=== PATIENT | female | born 1995 | race Caucasian/White ===

== ENCOUNTER → 2021-11-16 15:21 | Outpatient (BNVA) | payer OTHER, SELFPAY | PROVIDERS: PCP Family Medicine; Visit Provider Family Medicine | DX: Z76.89 Persons encountering health services in other specified circumstances (principal); E03.9 Hypothyroidism, unspecified; E28.2 Polycystic ovarian syndrome | CPT/HCPCS: 80053; 81000; 81025; 84439; 84443; 85025 ==

== ENCOUNTER 2022-04-02 10:35 | Emergency (ER) | payer OTHER, SELFPAY ==
[2022-04-02 10:48] VITALS: BP 181/115; PULSE 80; RESP 18; TEMP 36.8; O2SAT 99; BMI 56.3
--- NOTE | 2022-04-02 11:35 | ED_ITS ---
Documented by User: WILSON Saini 04/03/22 17:17 HPI - Skin/Abscess/Foreign Bdy General: Chief complaint: Skin/Abscess/Foreign Body Stated complaint: swelling and back pain Time Seen by Provider: 04/02/22 11:25 History of Present Illness: Patient is a 27-year-old female that comes to the ED with possible abscess on back. Patient was seen by Dr. Cullen at urgent care and Dr. Cullen sent her here to the ED for further evaluation and CT imaging of abscess. She reports the symptoms started approximately 10 days ago. She has a sore lump on the right lumbar region. It has not gotten any bigger in size over the last 10 days. She states it is gotten more painful. At rest pain is about a 3 out of 10. With any movement of torso especially if she is bending over pain gets significantly worse. She stated that she was unable to bend over to tie her shoes today due to the pain. Denies any fever, abdominal pain, nausea/vomiting, bladder or bowel symptoms. Patient also has a rash on the left lower leg that is red and warm and pruritic. Rash started after she shaved her legs couple days ago. Denies any purulent drainage from rash. Associated symptoms: Deny chills, fever(s), nausea or vomiting Review of Systems Const: Denies: fever(s), chills or fatigue Eyes: Denies: change in vision or eye discomfort ENMT: Denies: throat pain, odynophagia, nasal discharge or nasal congestion Card: Denies: chest pain, palpitations, edema, swelling of feet/ankles, dyspnea on exertion or orthopnea Resp: Denies: dyspnea, productive cough or non-productive cough GI: Denies: abdominal pain, nausea, vomiting, diarrhea, constipation or hematochezia : Denies: flank pain, dysuria or hematuria Musc: Reports: back pain (Tender mass on right lumbar region); Denies: neck pain or extremity swelling Skin/Breast: Denies: rash or new lesions Neuro: Denies: headache(s), numbness in extremities or weakness in extremities [facility] ED PFSH: Social History Smoking and tobacco status: never smoked Alcohol intake: current Alcohol intake frequency: holidays/special occasions only Physical Exam Const: COMMON NORMALS: no acute distress and patient oriented x3 GENERAL APPEARANCE: cooperative HENMT: COMMON NORMALS: normocephalic HEAD & SCALP: normocephalic MOUTH: Normal oral and palatal mucosa present THROAT: posterior oropharynx normal and uvula midline Neck/C-Spine: COMMON NORMALS: supple GENERAL: Yes normal visual inspection Resp: COMMON NORMALS: normal respiratory effort, No retractions, No use of accessory muscles and clear to auscultation bilaterally AUSCULTATION: clear to auscultation bilaterally Cardio: COMMON NORMALS: regular rate, regular rhythm, S1 normal heart sound present, S2 normal heart sound present, No gallops present (Cardio), No clicks present (Cardio), No murmurs present (Cardio) and Peripheral pulses 2+ throughout RATE: regular rate RHYTHM: regular rhythm HEART SOUNDS: S1 normal heart sound present and S2 normal heart sound present PERIPHERAL PULSES: Peripheral pulses 2+ throughout GI: COMMON NORMALS: Normal to inspection, nondistended, normoactive bowel sounds present, Soft to palpation, non-tender and no masses PALPATION: Yes Soft to palpation : COMMON NORMALS: Yes no CVA tenderness BLADDER/KIDNEY EXAM: Yes no CVA tenderness Back/Pelvis: COMMON NORMALS: no CVA tenderness OTHER: Tender palpable mass on right lumbar of back just to the right of lumbar spine and mid scapular region. No erythema, warmth or skin lesion noted. No purulent drainage seen. Extremity: COMMON NORMALS: normal to inspection Neuro: COMMON NORMALS: patient oriented x3 GAIT: Yes Normal gait present Skin: NARRATIVE SKIN EXAM: Left lower leg?erythemic and warm rash noted. No purulent drainage. Rash is nontender to palpation. Patient describes it as pruritic rash. GENERAL SKIN EXAM: dry skin Course 2 Vital Signs: Vital signs: Vital Signs Temperature 7 F L 04/02/22 14:30 Pulse Rate 70 04/02/22 14:30 Respiratory Rate 18 04/02/22 14:30 Blood Pressure 139/97 04/02/22 14:30 Pulse Oximetry 100 04/02/22 14:30 Oxygen Delivery Me thod 04/02/22 14:30 MDM - Skin/Abscess/Foreign Bdy Medicial Decision Making Patient is a 27-year-old female that comes to the ED with possible abscess on back. Patient was seen by Dr. Cullen at urgent care and Dr. Cullen sent her here to the ED for further evaluation and CT imaging of abscess. Vitals are stable. Upon exam patient appears to have some cellulitis left lower leg and she does have a tender palpable soft tissue possibly muscular mass noted in right lumbar region. It does not appear to be an abscess is not red or warm or draining. Rest of exam is benign. Labs are unremarkable. CT abdomen pelvis shows no soft tissue mass no other acute findings. Patient was diagnosed with musculoskeletal back pain and cellulitis. She was discharged home with a prescription for muscle relaxant, Keflex and prednisone. Told to follow-up with PCP in the next week for reevaluation. Return to ED precautions given. Patient understood and agreed with plan. Lab Data I reviewed the patient's lab results. : 04/02/22 11:13 04/02/22 11:13 Radiology Impressions Abdomen/Pelvis CT 04/02/22 11:58 IMPRESSION: 1. No soft tissue mass along the RIGHT lumbar spine or pelvis. 2. No evidence for appendicitis. 3. Moderately enlarged liver with hepatic steatosis. Laboratory Results WBC 5.1 10^3/uL (4.0-10.0) 04/02/22 11:13 RBC 4.47 10^6/uL (4.1-5.3) 04/02/22 11:13 Hgb 12.9 g/dL (11.5-15.3) 04/02/22 11:13 Hct 41.0 % (37.0-47.0) 04/02/22 11:13 MCV 91.7 fl (81-99) 04/02/22 11:13 MCH 28.9 pg (28.0-34.0) 04/02/22 11:13 MCHC 31.5 g/dL (30.0-36.0) 04/02/22 11:13 RDW 12.6 % (12.1-15.1) 04/02/22 11:13 Plt Count 246 10^3/cmm (130-400) 04/02/22 11:13 MPV 10.4 fL (7.4-10.4) 04/02/22 11:13 Neut % (Auto) 49.7 % 04/02/22 11:13 Lymph % (Auto) 38.6 % 04/02/22 11:13 Pine % (Auto) 8.3 % 04/02/22 11:13 Eos % (Auto) 2.4 % 04/02/22 11:13 Baso % (Auto) 0.6 % 04/02/22 11:13 Neut # (Auto) 2.53 10^3/uL (1.8-7.7) 04/02/22 11:13 Lymph # (Auto) 2.0 10^3/uL (0.8-4.8) 04/02/22 11:13 Pine # (Auto) 0.4 10^3/uL (0.2-0.9) 04/02/22 11:13 Eos # (Auto) 0.1 10^3/uL (0.0-0.8) 04/02/22 11:13 Baso # (Auto) 0.0 10^3/uL (0.0-0.1) 04/02/22 11:13 Nucleated RBC % (auto) 0 % 04/02/22 11:13 Nucleated RBCs # 0.0 /100WBC 04/02/22 11:13 Sodium 141 mmol/L (136-145) 04/02/22 11:13 Potassium 4.1 mmol/L (3.5-5.1) 04/02/22 11:13 Chloride 106 mmol/L (98-107) 04/02/22 11:13 Carbon Dioxide 28 mmol/L (22-29) 04/02/22 11:13 Anion Gap 11.1 (5-19) 04/02/22 11:13 BUN 10 mg/dL (6-20) 04/02/22 11:13 Creatinine 0.8 mg/dL (0.5-0.9) 04/02/22 11:13 GFR Calculation 84.8 mL/min (90-130) L 04/02/22 11:13 Glucose 94 mg/dL (65-115) 04/02/22 11:13 Calculated Osmolality 291 mOsm/kg (285-295) 04/02/22 11:13 Calcium 9.8 mg/dL (8.5-10.5) 04/02/22 11:13 Total Bilirubin 0.2 mg/dL (0.15-1.2) 04/02/22 11:13 AST 19 U/L (0-32) 04/02/22 11:13 ALT 24 U/L (0-33) 04/02/22 11:13 Alkaline Phosphatase 52 U/L (35-105) 04/02/22 11:13 Total Protein 7.2 g/dL (6.6-8.7) 04/02/22 11:13 Albumin 4.6 g/dL (3.5-5.2) 04/02/22 11:13 Globulin 2.6 g/dL (1.3-4.6) 04/02/22 11:13 HCG, Qual Negative (Negative) 04/02/22 11:13 Urine Color Yellow (Yellow) 04/02/22 11:50 Urine Appearance Clear (CLEAR) 04/02/22 11:50 Urine pH 7 (5-7) 04/02/22 11:50 Ur Specific [place] 1.010 (1.005-1.030) 04/02/22 11:50 Urine Protein Neg (Negative) 04/02/22 11:50 Urine Glucose (UA) Norm (Normal) 04/02/22 11:50 Urine Ketones Negative (Negative) 04/02/22 11:50 Urine Blood Neg (Negative) 04/02/22 11:50 Urine Nitrate Negative (Negative) 04/02/22 11:50 Urine Bilirubin Neg (Negative) 04/02/22 11:50 Urine Urobilinogen Norm mg/dL (Negative) 04/02/22 11:50 Ur Leukocyte Esterase Negative (Negative) 04/02/22 11:50 Discharge Plan Discharge Patient Disposition: Home Clinical Impression: Musculoskeletal back pain Cellulitis Qualifiers: Site of cellulitis: extremity Site of cellulitis of extremity: lower extremity Laterality: left Qualified Code(s): L03.116 - Cellulitis of left lower limb Condition: Stable Prescriptions: New methocarbamol 750 mg tablet 750 mg PO Q8H PRN (Reason: Back muscle spasms and pain) Qty: 20 0RF cephalexin 500 mg capsule 500 mg PO Q6H 7 Days Qty: 28 0RF prednisone 20 mg tablet 20 mg PO BID 3 Days Qty: 6 0RF No Action prenat.vits,jose alfredo,[id number] Tablet 1 tab PO DAILY fenofibrate nanocrystallized 145 mg tablet 145 mg PO DAILY Qty: 90 1RF levothyroxine 175 mcg tablet 175 mcg PO DAILY Qty: 90 1RF Discharge Orders: Discharge ED (Routine); Ordered 04/02/22 Ordered By: Sarabjit Awan Referrals: Lionel Nuñez, [Primary Care Provider] - Discharge Diet: Regular Discharge Activity: Increase activity as tolerated Patient Instructions: Cellulitis (ED), Musculoskeletal Pain (ED), Back Pain (ED) Activity Restrictions/Additional Instructions: Follow-up with medical provider as directed in the next 5 to 7 days reevaluation. Take medications as prescribed. Return to the ER or your medical provider if condition worsens. Please read and understand discharge instructions. Thank you for choosing [facility] for your healthcare needs today. Please realize this is an emergency room and that we are providing you with a medical screening exam and this may not be complete and all inclusive of all the testing and or work up that you may need to determine your ailment or severity of your illness. It is very important that you follow up as instructed or that you return to the Emergency Department should you have concerns or if your condition changes or worsens in any way. Stand Alone Forms: Work/School Release Coding Level of Care Code ED Heel Seam Rubber for Chg Fwd Exam Comprehensive Documented by User: Jasper Almanza DO 04/04/22 08:42 HPI - Skin/Abscess/Foreign Bdy General: Chief complaint: Skin/Abscess/Foreign Body Stated complaint: swelling and back pain Time Seen by Provider: 04/02/22 11:25 [facility] ED PFSH: Social History Smoking and tobacco status: never smoked Alcohol intake: current Alcohol intake frequency: holidays/special occasions only Course Vital Signs: Vital signs: Vital Signs Temperature 7 F L 04/02/22 14:30 Pulse Rate 70 04/02/22 14:30 Respiratory Rate 18 04/02/22 14:30 Blood Pressure 139/97 04/02/22 14:30 Pulse Oximetry 100 04/02/22 14:30 Oxygen Delivery Me thod 04/02/22 14:30 MDM - Skin/Abscess/Foreign Bdy Medicial Decision Making Patient is a 27-year-old female that comes to the ED with possible abscess on back. Patient was seen by Dr. Cullen at urgent care and Dr. Cullen sent her here to the ED for further evaluation and CT imaging of abscess. Vitals are stable. Upon exam patient appears to have some cellulitis left lower leg and she does have a tender palpable soft tissue possibly muscular mass noted in right lumbar region. It does not appear to be an abscess is not red or warm or draining. Rest of exam is benign. Labs are unremarkable. CT abdomen pelvis shows no soft tissue mass no other acute findings. Patient was diagnosed with musculoskeletal back pain and cellulitis. She was discharged home with a prescription for muscle relaxant, Keflex and prednisone. Told to follow-up with PCP in the next week for reevaluation. Return to ED precautions given. Patient understood and agreed with plan. Chart reviewed and patient discussed with midlevel. Agree with assessment and plan. Lab Data : 04/02/22 11:13 04/02/22 11:13 Radiology Impressions Abdomen/Pelvis CT 04/02/22 11:58 IMPRESSION: 1. No soft tissue mass along the RIGHT lumbar spine or pelvis. 2. No evidence for appendicitis. 3. Moderately enlarged liver with hepatic steatosis. Laboratory Results WBC 5.1 10^3/uL (4.0-10.0) 04/02/22 11:13 RBC 4.47 10^6/uL (4.1-5.3) 04/02/22 11:13 Hgb 12.9 g/dL (11.5-15.3) 04/02/22 11:13 Hct 41.0 % (37.0-47.0) 04/02/22 11:13 MCV 91.7 fl (81-99) 04/02/22 11:13 MCH 28.9 pg (28.0-34.0) 04/02/22 11:13 MCHC 31.5 g/dL (30.0-36.0) 04/02/22 11:13 RDW 12.6 % (12.1-15.1) 04/02/22 11:13 Plt Count 246 10^3/cmm (130-400) 04/02/22 11:13 MPV 10.4 fL (7.4-10.4) 04/02/22 11:13 Neut % (Auto) 49.7 % 04/02/22 11:13 Lymph % (Auto) 38.6 % 04/02/22 11:13 [place] % (Auto) 8.3 % 04/02/22 11:13 Eos % (Auto) 2.4 % 04/02/22 11:13 Baso % (Auto) 0.6 % 04/02/22 11:13 Neut # (Auto) 2.53 10^3/uL (1.8-7.7) 04/02/22 11:13 Lymph # (Auto) 2.0 10^3/uL (0.8-4.8) 04/02/22 11:13 Pine # (Auto) 0.4 10^3/uL (0.2-0.9) 04/02/22 11:13 Eos # (Auto) 0.1 10^3/uL (0.0-0.8) 04/02/22 11:13 Baso # (Auto) 0.0 10^3/uL (0.0-0.1) 04/02/22 11:13 Nucleated RBC % (auto) 0 % 04/02/22 11:13 Nucleated RBCs # 0.0 /100WBC 04/02/22 11:13 Sodium 141 mmol/L (136-145) 04/02/22 11:13 Potassium 4.1 mmol/L (3.5-5.1) 04/02/22 11:13 Chloride 106 mmol/L (98-107) 04/02/22 11:13 Carbon Dioxide 28 mmol/L (22-29) 04/02/22 11:13 Anion Gap 11.1 (5-19) 04/02/22 11:13 BUN 10 mg/dL (6-20) 04/02/22 11:13 Creatinine 0.8 mg/dL (0.5-0.9) 04/02/22 11:13 GFR Calculation 84.8 mL/min (90-130) L 04/02/22 11:13 Glucose 94 mg/dL (65-115) 04/02/22 11:13 Calculated Osmolality 291 mOsm/kg (285-295) 04/02/22 11:13 Calcium 9.8 mg/dL (8.5-10.5) 04/02/22 11:13 Total Bilirubin 0.2 mg/dL (0.15-1.2) 04/02/22 11:13 AST 19 U/L (0-32) 04/02/22 11:13 ALT 24 U/L (0-33) 04/02/22 11:13 Alkaline Phosphatase 52 U/L (35-105) 04/02/22 11:13 Total Protein 7.2 g/dL (6.6-8.7) 04/02/22 11:13 Albumin 4.6 g/dL (3.5-5.2) 04/02/22 11:13 Globulin 2.6 g/dL (1.3-4.6) 04/02/22 11:13 HCG, Qual Negative (Negative) 04/02/22 11:13 Urine Color Yellow (Yellow) 04/02/22 11:50 Urine Appearance Clear (CLEAR) 04/02/22 11:50 Urine pH 7 (5-7) 04/02/22 11:50 Ur Specific [place] 1.010 (1.005-1.030) 04/02/22 11:50 Urine Protein Neg (Negative) 04/02/22 11:50 Urine Glucose (UA) Norm (Normal) 04/02/22 11:50 Urine Ketones Negative (Negative) 04/02/22 11:50 Urine Blood Neg (Negative) 04/02/22 11:50 Urine Nitrate Negative (Negative) 04/02/22 11:50 Urine Bilirubin Neg (Negative) 04/02/22 11:50 Urine Urobilinogen Norm mg/dL (Negative) 04/02/22 11:50 Ur Leukocyte Esterase Negative (Negative) 04/02/22 11:50 Discharge Plan Discharge Patient Disposition: Home Clinical Impression: Musculoskeletal back pain Cellulitis Qualifiers: Site of cellulitis: extremity Site of cellulitis of extremity: lower extremity Laterality: left Qualified Code(s): L03.116 - Cellulitis of left lower limb Condition: Stable Prescriptions: New methocarbamol 750 mg tablet 750 mg PO Q8H PRN (Reason: Back muscle spasms and pain) Qty: 20 0RF cephalexin 500 mg capsule 500 mg PO Q6H 7 Days Qty: 28 0RF prednisone 20 mg tablet 20 mg PO BID 3 Days Qty: 6 0RF No Action prenat.vits,jose alfredo,[id number] Tablet 1 tab PO DAILY fenofibrate nanocrystallized 145 mg tablet 145 mg PO DAILY Qty: 90 1RF levothyroxine 175 mcg tablet 175 mcg PO DAILY Qty: 90 1RF Discharge Orders: Discharge ED (Routine); Ordered 04/02/22 Ordered By: Sarabjit Awan Referrals: Lionel Nuñez DO [Primary Care Provider] - Discharge Diet: Regular Discharge Activity: Increase activity as tolerated Patient Instructions: Cellulitis (ED), Musculoskeletal Pain (ED), Back Pain (ED) Activity Restrictions/Additional Instructions: Follow-up with medical provider as directed in the next 5 to 7 days reevaluation . Take medications as prescribed. Return to the ER or your medical provider if condition worsens. Please read and understand discharge instructions. Thank you for choosing [facility] for your healthcare needs today. Please realize this is an emergency room and that we are providing you with a medical screening exam and this may not be complete and all inclusive of all the testing and or work up that you may need to determine your ailment or severity of your illness. It is very important that you follow up as instructed or that you return to the Emergency Department should you have concerns or if your condition changes or worsens in any way. Stand Alone Forms: Work/School Release Coding Level of Care Code ED Heel Seam Rubber for Primo Fwd Exam Comprehensive
[2022-04-02 11:44] LABS: Basophils % 0.6 %; Eosinophils # 0.1 10^3/uL (0.0-0.8); Eosinophils % 2.4 %; Hemoglobin 12.9 g/dL (11.5-15.3); Lymphocytes % 38.6 %; Mean Corpuscular HGB Conc 31.5 g/dL (30.0-36.0); Mean Corpuscular Hemoglobin 28.9 pg (28.0-34.0); Mean Corpuscular Volume 91.7 fl (81-99); Mean Platelet Volume 10.4 fL (7.4-10.4); Monocytes # 0.4 10^3/uL (0.2-0.9); Monocytes % 8.3 %; Neutrophils # 2.53 10^3/uL (1.8-7.7); Neutrophils % 49.7 %; Nucleated Red Blood Cells % 0 %; Platelet Count 246 10^3/cmm (130-400); Red Blood Count 4.47 10^6/uL (4.1-5.3); Red Cell Distribution Width 12.6 % (12.1-15.1); White Blood Count 5.1 10^3/uL (4.0-10.0)
--- NOTE | 2022-04-02 11:58 | CT_ITS ---
WS: [id number] CT ABDOMEN AND PELVIS WITH CONTRAST HISTORY: tender mass on Right lumbar region, bulge over the RIGHT sacral region. TECHNIQUE: Imaging performed of the abdomen and pelvis with IV contrast. Single phase imaging of the abdomen. Coronal and sagittal reformats are submitted. All CT scans at [facility] use at [facility] [facility] one of these dose optimization techniques: automated exposure control; mA and/or kV adjustment per patient size (includes targeted exams where dose is matched to clinical indication); or iterative re construction. IV CONTRAST: Omnipaque 350; 95 mL IV. Oral contrast: No DLP: 1594.13 mGy.cm COMPARISON: None available. Lower thorax: Lung bases are clear. Heart is normal size. No hiatal hernia. Liver/biliary system: Moderately enlarged liver with diffuse hepatic steatosis. No bile duct dilatati on. Normal portal vein. Gallbladder: Normal. No gallstones or wall thickening. No pericholecystic fluid. Pancreas: Normal size pancreas and pancreatic duct. No adjacent inflammation. Spleen: Normal size spleen. No mass or infarct. Adrenal glands: Normal. Right kidney: Normal. Left kidney: Normal. Aorta: Normal. Lymphadenopathy: None. Free fluid: None. GI tract: Unremarkable. Abdominal wall: Unremarkable abdominal wall. No hernia. Pelvis: No free fluid or adenopathy within the pelvis. No soft tissue mass is identified along the RI GHT lumbar spine or posterior to the pelvis. Symmetric appearance of the soft tissues. Bones: Unremarkable. CT/CT abdomen pelvis w con* [id number] IMPRESSION: 1. No soft tissue mass along the RIGHT lumbar spine or pelvis. 2. No evidence for appendicitis. 3. Moderately enlarged liver with hepatic steatosis.
[2022-04-02 12:09] LABS: HCG, Serum Qual Negative (Negative)
[2022-04-02 12:13] LABS: Add Urine Microscopic? NO; Charge for UA Resulting for Rev
[2022-04-02 12:16] LABS: Alanine Aminotransferase 24 U/L (0-33); Albumin Level 4.6 g/dL (3.5-5.2); Alkaline Phosphatase 52 U/L (35-105); Anion Gap 11.1 (5-19); Aspartate Amino Transferase 19 U/L (0-32); Blood Urea Nitrogen 10 mg/dL (6-20); Calcium 9.8 mg/dL (8.5-10.5); Carbon Dioxide 28 mmol/L (22-29); Chloride 106 mmol/L (98-107); Globulin 2.6 g/dL (1.3-4.6); Glomerular Filtration Rate 84.8 mL/min (90-130); Glucose 94 mg/dL (65-115); Osmolality Calculated 291 mOsm/kg (285-295); Potassium 4.1 mmol/L (3.5-5.1); Sodium 141 mmol/L (136-145); Total Bilirubin 0.2 mg/dL (0.15-1.2); Total Protein 7.2 g/dL (6.6-8.7)
[2022-04-02 12:21] LABS: Bilirubin Urine Neg (Negative); Blood Urine Neg (Negative); Glucose Urine UA Norm (Normal); Ketones Urine Negative (Negative); Leukocyte Esterase Urine Negative (Negative); Nitrate Urine Negative (Negative); Protein Urine Neg (Negative); Urine Appearance Clear (CLEAR); Urine Color Yellow (Yellow); Urobilinogen Urine Norm (Negative); pH Urine 7 (5-7)
[2022-04-02] MEDS: iohexol 350 mg/mL 100 mL Btl IV (13:11)
[2022-04-02 13:40] VITALS: BP 139/97; PULSE 70; RESP 18; O2SAT 100
[2022-04-02 14:30] VITALS: BP 139/97; PULSE 70; RESP 18; TEMP -13.8; TEMP 7; O2SAT 100
== END 2022-04-02 14:39 | disposition home or self-care (01) ==
PROVIDERS: Emergency Provider Physician Assistant; PCP Family Medicine
DX: L03.116 Cellulitis of left lower limb (principal); M54.9 Dorsalgia, unspecified
CPT/HCPCS: 36415; 74177; 80053; 81003; 84703; 85025; 99285; Q9967

== ENCOUNTER → 2022-07-25 08:56 | Outpatient (BNVA) | payer OTHER, SELFPAY | PROVIDERS: PCP Family Medicine; Visit Provider Family Medicine | DX: E03.9 Hypothyroidism, unspecified (principal); K52.9 Noninfective gastroenteritis and colitis, unspecified; R10.11 Right upper quadrant pain | CPT/HCPCS: 80053; 84439; 84443; 84481 ==

== ENCOUNTER 2022-09-27 11:07 | Outpatient (CLI) | payer OTHER, SELFPAY ==
[2022-09-27 12:11] LABS: Chol HDL Ratio 5.37 mg/dL (0.0-4.40); Cholesterol 188 mg/dL (0-200); HDL Cholesterol 35 mg/dL (60-100); LDL Cholesterol Calculated 117 mg/dL (50-129); LDL HDL Ratio 3.34 RATIO (0.00-3.22); Triglycerides 179 mg/dL (0-150)
[2022-09-27 12:17] LABS: Troponin(5th) Baseline 6 ng/L (0-10)
== END 2022-09-27 11:08 | disposition home or self-care (01) ==
PROVIDERS: PCP Family Medicine; Visit Provider Family Medicine
DX: E78.1 Pure hyperglyceridemia (principal); I10 Essential (primary) hypertension; R07.89 Other chest pain
CPT/HCPCS: 80061; 84484